=== PATIENT | female | born 1960 | race Caucasian/White ===

== ENCOUNTER → 2017-01-18 | Outpatient (CLI) | payer OTHER ==
[~2017-01-18] MED LIST: ADVA100A INH; AZIT500T2 PO; CHLO25TA2 PO; LISI40TA PO; METO100T PO; MONT10TA4 PO; TRAM50TA PO; VENTAER INH; ZITH500T PO; ZOFR4TAB3 SL
[2017-01-18 16:32] LABS: FREE T4 0.93 NG/DL (0.76-1.46)
== END ==
LOC: CLAB 15:10
PROVIDERS: ATTEND Internal Medicine Cardiovascular Disease
DX: R00.0 Tachycardia, unspecified (principal)
CPT/HCPCS: 36415; 84439; 84443